=== PATIENT | male | born 1965 | race Caucasian/White ===

== ENCOUNTER 2021-04-05 07:15 | Outpatient (CLI) | payer OTHER, SELFPAY | END 2021-04-05 07:16 | disposition home or self-care (01) | LOC: CHSIMG 07:24 | DX: E22.1 Hyperprolactinemia (principal); Z53.8 Procedure and treatment not carried out for other reasons | CPT/HCPCS: 99199 ==

== ENCOUNTER 2021-04-29 21:39 | Emergency (ER) | payer OTHER, SELFPAY ==
--- NOTE | ~2021-04-29 | CT_ITS ---
EXAMINATION: CT abdomen pelvis wo con DATE: 04/29/2021 22:52 INDICATION: Left renal stone TECHNIQUE: Computed tomography (CT) of the abdomen and pelvis was performed without intravenous contr ast. Automated exposure control and iterative reconstruction technique were employed. The dose-length product was 1407.60 mGy-cm. COMPARISON: None FINDINGS: Lung bases are clear. Heart size is normal. No pericardial or pleural effusion. Small sliding-type hi atal hernia. Diffuse hepatic steatosis. Gallbladder, spleen, pancreas, right kidney and bilateral adr enal glands are normal. 2 mm stone in the proximal left ureter with minimal left hydronephrosis. Vasu tional 1 mm stone at a middle calyx of the left kidney. Bladder is normal. There is mild colonic dive rticulosis with a sigmoid predominance. There is no adjacent inflammatory change to suggest divertic ulitis. Small bowel and appendix are normal. No free intraperitoneal gas or fluid. No pathologically enlarged abdominal or pelvic lymphadenopathy. Bilateral small fat-containing indirect inguinal hernia s and additional small right direct inguinal hernia. There are bridging osteophytes at multiple level s in the spine, consistent with diffuse idiopathic skeletal hyperostosis (DISH). Slight lumbar levocu rvature with mild to moderate spondylosis. Mild to moderate bilateral hip osteoarthritis. IMPRESSION: 1. Left nephrolithiasis including at least partially obstructing 2 mm proximal left ureteral stone wi th minimal left hydronephrosis. Reviewed, dictated and finalized at [facility]. RT DESK CLERK IMPRESSION: 1. Left nephrolithiasis including at least partially obstructing 2 mm proximal left ureteral stone with minimal left hydronephrosis.
[2021-04-29 22:13] VITALS: BP 158/85; PULSE 70; RESP 20; TEMP 36.6; O2SAT 97
[2021-04-29] MEDS: ONDANSETRON INJ 4 MG/2 ML VIAL IV PUSH (22:58)
[2021-04-29] MEDS: KETOROLAC (*BKC) 60 MG/2 ML VIAL IM (22:58)
[2021-04-29] MEDS: SODIUM CHLORIDE 0.9% IV 500 ML 999 ML IV CONT (22:59)
[2021-04-29 23:38] LABS: Add Urine Microscopic? YES; Bilirubin Urine Negative (Negative); Blood Urine 3+ (Negative); Color Urine Yellow (Yellow); Glucose Urine UA 3+ (Negative); Ketones Urine 1+ (Negative); Leukocyte Esterase Ur Negative (Negative); Nitrate Urine Negative (Negative); Protein Urine Negative (Negative); Specific Grav Ur 1.025 (1.010-1.020); Urobilinogen Urine 0.2 mg/dL (0.2-1.0); pH Urine 5.5 (5.0-8.0)
[2021-04-29 23:44] LABS: Appearance Urine Sl Cloudy (Clear); Bacteria Urine Trace /hpf; Mucus Urine Rare /lpf; RBC Urine >75 /hpf (0-2); WBC Urine 0-3 /hpf (0-3)
--- NOTE | 2021-04-30 00:11 | ED.ABDPAIN ---
HPI - Abdominal Pain General Chief Complaint: Abdominal Pain Stated Complaint: possible kidney stone Time Seen by Provider: 04/29/21 21:45 Source: patient and RN notes reviewed Mode of arrival: ambulatory Limitations: no limitations History of Present Illness MD elicited complaint: flank pain Pertinent past history: kidney stones and past UTI Onset (ago): hour(s) (6) Pain Consistency: constant Location: L flank Severity: moderate Pain scale (0-10): 8 Quality: cramping, aching and dull Migration to: no migration Exacerbating factors: nothing Relieving factors: nothing Associated symptoms: nausea and dysuria Related Data Home Medications Medication Instructions Recorded Confirmed fluoxetine 20 mg PO DAILY 04/29/21 04/29/21 glyburide 5 mg PO BID 04/29/21 04/29/21 insulin glargine 45 unit SUBCUT DAILY 04/29/21 04/29/21 insulin glargine-lixisenatide 30 unit SUBCUT QAM 04/29/21 04/29/21 [Soliqua 100/33] levothyroxine 137 mcg PO DAILY 04/29/21 04/29/21 lisinopril 20 mg PO DAILY 04/29/21 04/29/21 meloxicam 7.5 mg PO DAILY 04/29/21 04/29/21 pravastatin 10 mg PO DAILY 04/29/21 04/29/21 Allergies Allergy/AdvReac Type Severity Reaction Status Date / Time No Known Allergies Allergy Verified 04/29/21 22:09 Review of Systems Review of Systems: All systems reviewed & are unremarkable except as noted in HPI and below PMFSH Past Medical History Medical History (Updated 05/11/21 @ 12:51 by Chuckie Shelton MD) Calculus of kidney UTI (urinary tract infection) Exam Const: General: no acute distress and alert Nutritional Appearance: well nourished Limitations: no limitations HENMT: Head: normal to inspection Ears: external ears normal and TM's normal bilaterally General nose exam: Normal external nose present and Normal nares present Mouth: Yes lip normal and Yes moist mucous membranes Teeth and gingiva: dentition normal Eyes: Conjunctivae: conjunctivae normal Pupils: Equal, round and reactive pupils present EOM: EOMs intact bilaterally Neck: Neck: normal visual inspection and no lymphadenopathy Chest: Chest palpation & inspection: normal inspection of the chest Resp: Effort & Inspection: normal respiratory effort Auscultation: clear to auscultation bilaterally Cardio: Rate: regular rate Rhythm: regular rhythm GI: GI Palp: Yes Soft to palpation and Yes Tenderness to palpation present (GI) (mild left flank and left CVA tenderness.) : General: Yes bladder normal to palpation (minimal suprapubic tenderness.) and Yes CVA tenderness Back/Spine/Pelvis: Back: CVA tenderness Skin: General skin exam: normal color Rashes: no rashes Neuro: General: patient oriented x3, moves all extremities, no meningeal signs, no focal motor deficits and CN's II-XI intact bilaterally Extrem: General: normal to inspection and no pedal edema Psych: Appearance: grossly normal and well kempt Mental Status: mental status grossly normal Thought content: Yes Normal thought content present Course Course Emergency Course: Pt was stable in the ED with less pain. Reevaluation(s) Reevaluation #1: less flank pain. VSS. Date: 04/29/21 Time: 22:41 Vital Signs Vital signs: Vital Signs Temperature 36.6 C 04/29/21 22:13 Pulse Rate 70 04/29/21 22:13 Respiratory Rate 20 04/29/21 22:13 Blood Pressure 158/85 H 04/29/21 22:13 Pulse Oximetry 97 04/29/21 22:13 Temperature 36.7 C 04/30/21 00:38 Pulse Rate 75 04/30/21 00:45 Respiratory Rate 18 04/30/21 00:45 Blood Pressure 153/75 H 04/30/21 00:45 Pulse Oximetry 98 04/30/21 00:45 MDM - Abdominal Pain Differential Diagnosis Differential diagnosis: Likely abdominal pain, acute appendicitis, calculus of kidney and small bowel obstruction Medical Records Attestation: I reviewed the patient's medical records. Lab Data Attestation: I reviewed the patient's lab results. Labs: Lab Results 04/29/21 Range/Units 23:35 Urine Color Yellow (Ye
[2021-04-30 00:38] VITALS: BP 155/85; PULSE 91; RESP 18; TEMP 36.7; O2SAT 98
[2021-04-30 00:45] VITALS: BP 153/75; PULSE 75; RESP 18; O2SAT 98
== END 2021-04-30 00:47 | disposition home or self-care (01) ==
PROVIDERS: Emergency Provider Emergency Medicine
DX: N20.0 Calculus of kidney (principal); N39.0 Urinary tract infection, site not specified
CPT/HCPCS: 74176; 81001; 96372; 96374; 99283; 99284; J1885; J2405; J7040

== ENCOUNTER 2021-12-24 15:10 | Outpatient (CLI) | payer OTHER, SELFPAY ==
[2021-12-24 15:43] LABS: Creatinine Urine 150.29 mg/dL (40-278); MALB Creatinine Ratio 8.6 mg/g (0-30); Microalbumin Urine Random < 13.0 mg/L
[2021-12-24 15:44] LABS: Alanine Aminotransferase 38 U/L (16-63); Albumin Level 3.6 g/dL (3.4-5.0); Alkaline Phosphatase 53 U/L (46-116); Anion Gap 7 mmol/L (8-16); Aspartate Amino Transferase 13 U/L (15-37); Bilirubin,Total 0.3 mg/dL (0.00-1.00); Blood Urea Nitrogen 16 mg/dL (7-18); Calcium 9.3 mg/dL (8.5-10.1); Carbon Dioxide 28 mmol/L (21-32); Chloride 100 mmol/L (98-108); Cholesterol 213 mg/dL (0-200); Estimated Glomerular Filt Rate > 60; Glucose 254 mg/dL (70-99); HDL Direct 39 mg/dL (40-60); LDL Cholesterol Calculated 121 mg/dL (<130); Osmolality Calculated 290 mOsm/kg (285-295); Potassium 3.9 mmol/L (3.5-5.1); Sodium 135 mmol/L (136-145); Total Protein 7.5 g/dL (6.4-8.2); Triglycerides 263 mg/dL (0-150)
[2021-12-24 15:48] LABS: Hemoglobin A1C 10.7 % (<5.7)
== END 2021-12-24 15:11 | disposition home or self-care (01) ==
LOC: CHSLAB 15:12
PROVIDERS: PCP Family Medicine; Visit Provider Family Medicine
DX: G47.33 Obstructive sleep apnea (adult) (pediatric) (principal); E11.9 Type 2 diabetes mellitus without complications
CPT/HCPCS: 36415; 80053; 80061; 82043; 83036